=== PATIENT | female | born 2000 ===

== ENCOUNTER 2023-09-12 07:42 | Outpatient (REF) | payer OTHER, SELFPAY ==
--- NOTE | ~2023-09-12 | US_ITS ---
EXAMINATION: US PELVIS CLINICAL INFORMATION: Right lower quadrant pain, last menstrual period August 18, 2023. COMPARISON: None available. TECHNIQUE: Ultrasound of the pelvis is performed using both transabdominal and transvaginal transducers along with Doppler. Transvaginal imaging is performed due to inadequate visualization transabdominally. Limited visualization due to bowel gas. FINDINGS: Uterus is anteverted and measures 8.5 x 3.7 x 4.7 cm. No discrete fibroids are appreciated. Endometrial thickness is 9.3 mm. Small amount of free fluid. Bilateral ovaries are enlarged with multiple peripheral follicles and echogenic stroma. Right ovary measures 4.7 x 2.2 x 2.2 cm, volume 12.6 mL. Left ovary measures 2.9 x 3.2 x 2.0 cm, volume 10.1 mL. US/US pelvic and transvaginal IMPRESSION: 1. Endometrial thickness is 9.3 mm. 2. Bilateral ovaries are enlarged with multiple peripheral follicles and echogenic stroma. Correlation with clinical exam and laboratory values recommended to determine further management. 3. Small amount of free fluid.
== END 2023-09-12 07:43 | disposition home or self-care (01) ==
LOC: HO.UMASIMG 07:42
PROVIDERS: Visit Provider Nurse Practitioner Women's Health
DX: R10.2 Pelvic and perineal pain (principal)
CPT/HCPCS: 76830; 76856